=== PATIENT | male | born 1990 | race Caucasian/White ===

== ENCOUNTER 2017-08-13 14:56 | Emergency (ER) | payer BC ==
[2017-08-13 15:17] VITALS: BP 137/83
--- NOTE | 2017-08-13 15:27 | UC ---
Throat Pain/Nasal Lawson HPI - HPI Summary HPI Summary: Gradual onset of "laryngitis" and throat "fullness" X 2 months. Silvia ribera describes voice change, and feeling of something "stuck" in his throat . He was seen 2 weeks ago by his PCP, given a "spray" to help improve his c/o but states his throat feels worse since using medication. Pt's PCP referred him to Dr. Ozuna for evaluation. - History of Current Complaint Chief Complaint: UCGeneralIllness Stated Complaint: SORE THROAT Time Seen by Provider: 08/13/17 15:14 Hx Obtained From: Patient Onset/Duration: Gradual Onset, Lasting Weeks, Still Present Severity: Mild Pain Intensity: 0 Cough: None Associated Signs & Symptoms: Positive: Dysphagia, Hoarseness - Epiglottits Risk Factors Epiglottis Risk Factors: Negative - Allergies/Home Medications Allergies/Adverse Reactions: Allergies Allergy/AdvReac Type Severity Reaction Status Date / Time pet dander, dust mites Allergy Unknown Uncoded 08/13/17 15:17 Reaction Details Home Medications: Home Medications Fluticasone HFA 220 mcg(NF) [Flovent HFA 220 Mcg(NF)] 1 puff INH BID 08/13/17 [ History Confirmed 08/13/17] Loratadine [Claritin] 10 mg PO DAILY 08/13/17 [History Confirmed 08/13/17] PMH/Surg Hx/FS Hx/Imm Hx Previously Healthy: Yes - Surgical History Surgical History: Yes Surgery Procedure, Year, and Place: aorta at age 10 yrs - Family History Known Family History: Positive: Cardiac Disease - Social History Occupation: Employed Full-time Lives: With Family Alcohol Use: Rare Substance Use Type: None Substance Use Comment - Amount & Last Used: 2 cups coffee daily, no soda Smoking Status (MU): Former Smoker Amount Used/How Often: 1 pack per week x 4 years Have You Smoked in the Last Year: No When Did the Patient Quit Smoking/Using Tobacco: quit in 2018 Review of Systems Constitutional: Negative Skin: Negative Eyes: Negative ENT: Sore Throat Respiratory: Negative Cardiovascular: Negative Gastrointestinal: Negative Genitourinary: Negative Motor: Negative Neurovascular: Negative Musculoskeletal: Negative Neurological: Negative Psychological: Negative Is Patient Immunocompromised?: No All Other Systems Reviewed And Are Negative: Yes Physical Exam Triage Information Reviewed: Yes Appearance: Well-Appearing Vital Signs: Initial Vital Signs Temp 97.7 F 05/17/18 15:09 Pulse 66 08/13/17 15:09 Resp 14 08/13/17 15:09 BP 137/83 08/13/17 15:09 Pulse Ox 100 08/13/17 15:09 Vital Signs Reviewed: Yes Eye Exam: Normal ENT Exam: Normal ENT: Positive: Pharynx normal Dental Exam: Normal Neck exam: Normal Neck: Positive: Supple, Nontender, No Lymphadenopathy Respiratory Exam: Normal Cardiovascular Exam: Normal Musculoskeletal Exam: Normal Neurological Exam: Normal Psychological Exam: Normal Skin Exam: Normal Throat Pain/Nasal Course/Dx - Differential Dx/Diagnosis Differential Diagnosis/HQI/PQRI: Pharyngitis Provider Diagnoses: dysphagia. laryngitis Discharge - Sign-Out/Discharge Documenting (check all that apply): Discharge/Admit/Transfer - Discharge Plan Condition: Stable Disposition: HOME Patient Education Materials: Laryngitis (ED), Dysphagia (ED) Referrals: Bam Ozuna MD [Medical Doctor] - As Soon As Possible David GARCIA,Nicko Cunningham [Primary Care Provider] - If Needed Additional Instructions: Please follow up with your PCP and the ENT provider that you were referred to as soon as possible. - Billing Disposition and Condition Condition: STABLE Disposition: HOME
== END 2017-08-13 15:35 | disposition home or self-care (01) ==
LOC: UCCORT 14:56
DX: R13.10 Dysphagia, unspecified (principal); J04.0 Acute laryngitis; Z87.891 Personal history of nicotine dependence
CPT/HCPCS: 99211; G0463